=== PATIENT | male | born 1990 | race Caucasian/White ===

== ENCOUNTER 2023-01-03 19:18 | Emergency (ER) | payer BC, OTHER, SELFPAY ==
[~2023-01-03] VITALS: Ht 177.8 cm; Wt 100.0 kg
[2023-01-03 19:19] VITALS: BP 145/90; TEMP 98.6; O2SAT 98
== END 2023-01-03 22:19 | disposition left against medical advice (07) ==
LOC: M ED 19:18
DX: Z53.21 Procedure and treatment not carried out due to patient leaving prior to being seen by health care provider (principal)

== ENCOUNTER → 2023-01-08 | Outpatient (CLI) | payer SELFPAY | LOC: M SOG 10:20 | PROVIDERS: ATTEND Physician Assistant | DX: M25.572 Pain in left ankle and joints of left foot (principal) ==

== ENCOUNTER → 2024-01-22 | Outpatient (CLI) | payer OTHER | LOC: M SOG 15:36 | PROVIDERS: ATTEND Physician Assistant | DX: M77.32 Calcaneal spur, left foot (principal) ==

== ENCOUNTER → 2024-03-19 | Outpatient (CLI) | payer BC ==
[2024-03-19 12:59] LABS: CHOLESTEROL RISK RATIO 5.27 (<5); HDL CHOLESTEROL 34.5 MG/DL (>40); LDL CHOLESTEROL 111.9 MG/DL (<100); NON-HDL-C 147.5 MG/DL
== END ==
LOC: M PLALAB 10:19
PROVIDERS: ATTEND Internal Medicine Cardiovascular Disease
DX: E78.5 Hyperlipidemia, unspecified (principal)